=== PATIENT | female | born 1980 | race Caucasian/White ===

== ENCOUNTER 2017-05-17 12:02 | Outpatient (CLI) | payer BC ==
--- NOTE | 2017-05-17 15:27 | RAD ---
RIGHT FOOT THREE VIEWS: History: Patient stepped on a shovel last Tuesday. Patient is having pain. Comparison: None. FINDINGS: Lisfranc alignment is maintained. Joint spaces are preserved. No fracture. Minimal spurring of the c alcaneus. IMPRESSION: No fracture. POS: [facility]
== END 2017-05-17 12:03 | disposition home or self-care (01) ==
LOC: MADRAD 12:02
PROVIDERS: ATTEND General Practice
DX: M79.671 Pain in right foot (principal)

== ENCOUNTER 2020-01-24 09:14 | Emergency (ER) | payer BC ==
[2020-01-24] MEDS ORDERED: Amoxicillin/Potassium Clav 875 MG TAB ONE (09:52)
[2020-01-24] MEDS ORDERED: Bacitracin 1 PK ONE (09:52)
== END 2020-01-24 10:05 | disposition home or self-care (01) ==
LOC: MADERS 09:14
DX: H60.11 Cellulitis of right external ear (principal); F39 Unspecified mood [affective] disorder; Z79.899 Other long term (current) drug therapy
CPT/HCPCS: 99283

== ENCOUNTER 2021-01-18 18:22 | Emergency (ER) | payer BC | END 2021-01-18 19:00 | disposition home or self-care (01) | LOC: MADERS 18:22 | DX: S93.402A Sprain of unspecified ligament of left ankle, initial encounter (principal); Z79.899 Other long term (current) drug therapy; X50.9XXA Other and unspecified overexertion or strenuous movements or postures, initial encounter ==

== ENCOUNTER 2021-01-26 17:09 | Emergency (ER) | payer BC ==
[2021-01-26] MEDS ORDERED: Fentanyl 100 MCG/2 ML VIAL ONE (17:58)
[2021-01-26 18:08] LABS: INR-International Normal Ratio 0.8; Prothrombin Time 11.4 sec (12.0-14.7)
[2021-01-26 18:19] LABS: ALT (SGPT) 18 U/L (8-55); AST (SGOT) 18 U/L (5-34); Albumin 4.2 g/dL (3.5-5.0); Alkaline Phosphatase 78 U/L (40-110); Anion Gap 15 mmol/L (10-20); BUN (Urea Nitrogen) 8 mg/dL (7.0-18.7); Bilirubin, Total 0.2 mg/dL (0.2-1.2); Calc. Creatinine Clearance 0 mL/min (70-130); Calcium 9.7 mg/dL (7.8-10.44); Carbon Dioxide 26 mmol/L (22-29); Chloride 103 mmol/L (98-107); Globulin 3.4 g/dL (2.4-3.5); Glucose 104 mg/dL (70-105); Potassium 3.7 mmol/L (3.5-5.1); Protein, Total 7.6 g/dL (6.0-8.3); Sodium 140 mmol/L (136-145)
[2021-01-26 18:23] LABS: Hemoglobin 12.9 g/dL (12.0-16.0); Mean Corpuscular HGB CONC 30.6 g/dL (32.0-36.0); Mean Corpuscular Hemoglobin 26.8 pg (27.0-31.0); Mean Corpuscular Volume 87.6 fL (78.0-98.0); Mean Platelet Volume 9.1 fL (7.4-10.4); Platelet Count 261 thou/uL (130-400); RBC Distribution Width 13.3 % (11.5-14.5); Red Blood Cell (RBC) Count 4.82 mill/uL (4.20-5.40); White Blood Cell (WBC) Count 12.7 thou/uL (4.8-10.8)
[2021-01-26 18:24] LABS: Band 1 % (5-11); Lymphocytes 26 % (21-51); MDiff Complete? YES; Monocytes 3 % (0-10); Neutrophil 65 % (42-75); Platelet Morphology Comment Appears Adequate; RBC Morphology Normal; Reactive Lymphocytes 5 % (0-10)
[2021-01-26] MEDS ORDERED: HYDROcodone/Acetaminophen 5/325 mg Tablet ONE (21:45)
[2021-01-26] MEDS ORDERED: Enoxaparin Sodium 80 MG/0.8 ML SYRINGE ONE (21:45)
== END 2021-01-26 21:56 | disposition short-term general hospital (02) ==
LOC: MADERS 17:09
DX: M79.662 Pain in left lower leg (principal); N60.19 Diffuse cystic mastopathy of unspecified breast; Z79.899 Other long term (current) drug therapy
CPT/HCPCS: 80053; 85025; 85379; 85610; 96372; 96374; J1650; J3010

== ENCOUNTER 2022-07-19 23:09 | Emergency (ER) | payer BC, OTHER ==
[2022-07-20] MEDS ORDERED: predniSONE 20 MG TAB ONE (00:07)
== END 2022-07-20 00:50 | disposition home or self-care (01) ==
LOC: MADERS 23:09
DX: J11.1 Influenza due to unidentified influenza virus with other respiratory manifestations (principal)
CPT/HCPCS: 71046; J7512; J7620

== ENCOUNTER 2023-02-15 13:14 | Emergency (ER) | payer OTHER ==
[~2023-02-15 13:14] MED LIST: Iopamidol 370 76% 100 ML VIAL ONE
[2023-02-15] MEDS ORDERED: Sodium Chloride 0.9% 1,000 ML ONE (13:38)
[2023-02-15] MEDS ORDERED: Ketorolac Tromethamine 30 MG/ML VIAL ONE (13:38)
[2023-02-15 13:50] LABS: Bilirubin Negative (Negative); Blood, Urine Large (Negative); Clarity Slightly Cloudy (Clear); Glucose, Urine (Dipstick) Negative (Negative); Ketone, Urine Negative (Negative); Leukocyte Negative (Negative); Nitrite Negative (Negative); Protein, Urine (Dipstick) Negative (Neg-Trace); Specific Gravity, Urine 1.015 (1.005-1.030); Urobilinogen 0.2 mg/dL (Less than 2); pH, Urine 5.5 (5.0-9.0)
[2023-02-15 13:53] LABS: #Basophils 0.1 thou/uL (0.0-0.2); #Eosinphils 0.1 thou/uL (0.0-0.7); #Lymphocytes 2.5 thou/uL (1.20-3.40); #Monocytes 0.4 thou/uL (0.11-0.59); #Neutrophils 5.4 thou/uL (1.40-6.50); %Basophils 1.2 % (0.0-1.0); %Eosinophils 0.8 % (0.0-10.0); %Lymphocytes 29.6 % (21.0-51.0); %Monocytes 4.7 % (0.0-10.0); %Neutrophils 63.7 % (42.0-75.0); Hemoglobin 13.4 g/dL (12.0-16.0); Mean Corpuscular HGB CONC 32.7 g/dL (32.0-36.0); Mean Corpuscular Volume 88.6 fl (78.0-98.0); Mean Platelet Volume 10.4 fL (7.4-10.4); Platelet Count 231 10x3/uL (130-400); RBC Distribution Width 12.7 % (11.5-14.5); Red Blood Cell (RBC) Count 4.61 mill/uL (4.20-5.40); White Blood Cell (WBC) Count 8.5 10x3/uL (4.8-10.8)
[2023-02-15 13:58] LABS: Bacteria/HPF 2+ HPF (None Seen); CAUTI Indications for Culture Dysuria,urgency,freq; WBC/HPF 0-3 HPF (0-3)
[2023-02-15 14:01] LABS: Urine Culture Reflex No No
[2023-02-15 14:02] LABS: BHCG - Serum Negative (NEGATIVE); Pregs Control Background? CLEAR/WHITE (CLR/WHITE); Pregs Control Bar Appear? YES (CONTROL BAR)
[2023-02-15] MEDS ORDERED: Ondansetron PF 4 MG/2 ML Vial ONE (14:04)
[2023-02-15 14:10] LABS: ALT (SGPT) 21 U/L (8-55); AST (SGOT) 23 U/L (5-34); Alkaline Phosphatase 65 U/L (40-110); Anion Gap 17 mmol/L (10-20); BUN (Urea Nitrogen) 8 mg/dL (7.0-18.7); Bilirubin, Total 0.4 mg/dL (0.2-1.2); Calc. Creatinine Clearance 0 mL/min (70-130); Calcium 9.4 mg/dL (7.8-10.44); Carbon Dioxide 23 mmol/L (22-29); Chloride 104 mmol/L (98-107); Estimated GFR 112; Globulin 3.2 g/dL (2.4-3.5); Glucose 103 mg/dL (70-105); Lipase 34 U/L (8-78); Magnesium 1.5 mg/dL (1.6-2.6); Potassium 4.1 mmol/L (3.5-5.1); Protein, Total 7.2 g/dL (6.0-8.3); Sodium 140 mmol/L (136-145)
[2023-02-15] MEDS ORDERED: Magnesium Oxide 400 MG TAB ONE (15:01)
== END 2023-02-15 15:08 | disposition home or self-care (01) ==
LOC: MADERS 13:14
DX: R10.11 Right upper quadrant pain (principal); E83.42 Hypomagnesemia; E03.9 Hypothyroidism, unspecified; Z79.899 Other long term (current) drug therapy
CPT/HCPCS: 74177; 80053; 81001; 83690; 83735; 84703; 85025; 96361; 96374; 96375; J1885; J2405; J7050; Q9967